=== PATIENT | female | born 1945 | race Caucasian/White ===

== ENCOUNTER → 2016-10-30 | Outpatient (CLI) | payer MEDICARE, MEDICAID ==
[~2016-10-30] MED LIST: AMIO200T; ASPI-1035; ATOR40TA70; BENA40TA3; FURO40TA5; LOSA100T14; METF10002; NIFE60TA8; OMEP20CA4; TRAM50TA3
== END | disposition home or self-care (01) ==
LOC: MAMMO 10:17
PROVIDERS: ATTEND Specialist
DX: Z12.31 Encounter for screening mammogram for malignant neoplasm of breast (principal)
CPT/HCPCS: G0202

== ENCOUNTER → 2017-11-02 | Outpatient (CLI) | payer MEDICARE, MEDICAID ==
[~2017-11-02] MED LIST changes: -ASPI-1035; +ASPI-1158; -NIFE60TA8; +NIFE60TA94
== END | disposition home or self-care (01) ==
LOC: MAMMO 09:49
PROVIDERS: ATTEND Specialist
DX: Z12.31 Encounter for screening mammogram for malignant neoplasm of breast (principal)
CPT/HCPCS: 77067

== ENCOUNTER 2017-11-26 20:08 | Emergency (ER) | payer MEDICARE, MEDICAID ==
[~2017-11-26] VITALS: Ht 160 cm; Wt 98.0 kg
[2017-11-26 20:57] LABS: BASOPHILS % 1.4 % (0.0-2.0); EOSINOPHILS % 1.1 % (0.0-5.0); HEMATOCRIT. 35.3 % (36.0-48.0); HEMOGLOBIN. 11.9 g/dL (12.0-16.0); LYMPHOCYTES % 38.9 % (20.0-50.0); MEAN CORPUSCULAR HEMOGLOBIN 28.3 pg (28.0-32.0); MEAN CORPUSCULAR VOLUME 83.8 fL (81.0-99.0); MEAN PLATELET VOLUME 9.7 fl (7.4-10.4); MONOCYTES % 8.3 % (2.0-8.0); NEUTROPHILS % 50.3 % (40.0-76.0); PLATELET 215 x1000/uL (130-400); RED BLOOD CELL COUNT 4.21 mill/uL (4.2-5.4); RED CELL DISTRIBUTION WIDTH 16.8 % (11.6-14.6)
[2017-11-26 21:02] LABS: CHLORIDE 107 mEq/L (98-107)
[2017-11-26 21:03] LABS: PROTHROMBIN TIME 10.5 sec (9.4-11.6)
[2017-11-26] MEDS ORDERED: KETOROLAC 30MG/ML VIAL IV STA (22:18)
[2017-11-26] MEDS ORDERED: ONDANSETRON HCL 4MG/2ML VIAL IV STA (22:18)
[2017-11-26] MEDS ORDERED: SODIUM CHLORIDE 0.9% 1,000 ML IV ONE (22:18)
[2017-11-26 22:48] LABS: CLARITY URINE CLEAR (CLEAR); COLOR URINE YELLOW (YELLOW); KETONES URINE NEGATIVE (NEGATIVE); LEUKOCYTE ESTERASE URINE 2+ (NEGATIVE); NITRITE URINE NEGATIVE (NEGATIVE); OCCULT BLOOD URINE NEGATIVE (NEGATIVE); PROTEIN URINE NEGATIVE (NEGATIVE); SPECIFIC GRAVITY URINE 1.018 (1.005-1.030); UROBILINOGEN URINE 0.2 E.U./dL (0.2-1.0)
[2017-11-27] MEDS ORDERED: CEFTRIAXONE 1 G PREMIX 50 ML IV ONE
[2017-11-27 04:00] VITALS: BP 167/81
== END 2017-11-27 04:09 | disposition left against medical advice (07) ==
LOC: ER 20:33 → EDBEDREQ 11-27 00:17 → EDBEDREQSVC 11-27 01:47 → ER 11-27 04:09 → CANBEDREQ 11-27 04:18
DX: N10 Acute pyelonephritis (principal); I10 Essential (primary) hypertension; I48.91 Unspecified atrial fibrillation; E11.9 Type 2 diabetes mellitus without complications; Z79.82 Long term (current) use of aspirin; Z98.84 Bariatric surgery status; Z90.49 Acquired absence of other specified parts of digestive tract
CPT/HCPCS: 36415; 74176; 76700; 80053; 81003; 83690; 85025; 85610; 93005; 96361; 96365; 96375; 99285; J0696; J1885; J2405; J7030